=== PATIENT | male | born 1970 | race Caucasian/White ===

== ENCOUNTER 2016-11-16 03:11 | Emergency (ER) | payer MEDICARE ==
[~2016-11-16] VITALS: Ht 177.8 cm; Wt 97.0 kg
[2016-11-16] MEDS ORDERED: DIVA500T35 PO (03:14)
[2016-11-16] MEDS ORDERED: RISP1 PO (03:14)
[2016-11-16] MEDS ORDERED: SERT100T12 PO (03:14)
[2016-11-16] MEDS ORDERED: KETOROLAC TROMETHAMINE 60 MG/2 ML VIAL IM ONE (04:00)
[2016-11-16] MEDS ORDERED: BACLOFEN 10 MG TABLET PO ONE (04:00)
[2016-11-16 05:00] VITALS: BP 132/76
== END 2016-11-16 05:32 | disposition home or self-care (01) ==
LOC: EMS 03:13
DX: M54.40 Lumbago with sciatica, unspecified side (principal); F17.210 Nicotine dependence, cigarettes, uncomplicated
CPT/HCPCS: 96372; 99283; 99406; J1885